=== PATIENT | male | born 1965 | race Caucasian/White ===

== ENCOUNTER 2021-08-10 19:40 | Emergency (ER) | payer BC ==
[2021-08-10] MEDS ORDERED: Sodium Chloride 0.9% 10 ML Syringe FLUSH PRN (19:56)
--- NOTE | 2021-08-10 20:30 | EDM.PDOC ---
ED HPI GENERAL MEDICAL PROBLEM - General Chief Complaint: Chest Pain Stated Complaint: [facility] Time Seen by Provider: 08/10/21 20:20 Source of Information: Reports: Patient, RN Notes Reviewed History Limitations: Reports: No Limitations - History of Present Illness INITIAL COMMENTS - FREE TEXT/NARRATIVE: Patient is a 56-year-old male who presents to the ER for the evaluation of his chest discomfort. Patient was brought in via [facility]. Patient states that he was sitting on his couch, when he turned onto his left side, and had excruciating left lower chest pain. States that it felt like a band across his chest. Patient has been getting over a sinus infection/upper respiratory infection. So he knows that the pain seems to worsen with movement and coughing. He is not had pain like this in the past. No cardiac issues prior to this. Patient denies any other sick-like symptoms, fever/chills, cough, or nausea/vomiting/diarrhea. Patient states that due to the pain, he does have a slight bit of shortness of breath. Left Lower Chest Pain Score (Numeric/FACES): 6 - Related Data Allergies Allergy/AdvReac Type Severity Reaction Status Date / Time No Known Allergies Allergy Verified 08/10/21 19:45 Home Meds: Home Meds . [No Known Home Meds] 08/10/21 [History] Past Medical History - Past Health History Medical/Surgical History: Denies Medical/Surgical History Social & Family History - Tobacco Use Tobacco Use Status *Q: Current Every Day Tobacco User Years of Tobacco use: 12 Packs/Tins Daily: 1 - Caffeine Use Caffeine Use: Reports: Coffee - Alcohol Use Days Per Week of Alcohol Use: 7 Number of Drinks Per Day: 3 Total Drinks Per Week: 21 - Recreational Drug Use Recreational Drug Use: No ED ROS GENERAL - Review of Systems Review Of Systems: Comprehensive ROS is negative, except as noted in HPI. ED EXAM, GENERAL - Physical Exam Exam: See Below Exam Limited By: No Limitations General Appearance: Alert, WD/WN, No Apparent Distress Respiratory/Chest: No Respiratory Distress, Lungs Clear, Normal Breath Sounds, No Accessory Muscle Use, Other (tenderness to left lower chest) Cardiovascular: Normal Peripheral Pulses, Regular Rate, Rhythm, No Edema Extremities: Normal Inspection, Normal Capillary Refill Neurological: Alert, Oriented, Normal Cognition, No Motor/Sensory Deficits Psychiatric: Normal Affect, Normal Mood Skin Exam: Warm, Dry, Intact, Normal Color, No Rash #1 Interpretation EKG Date: 08/10/21 Time: 20:22 Rhythm: NSR Rate (Beats/Min): 72 [place]: Normal P-Wave: Present QRS: Normal ST-T: Normal QT: Normal Comparison: NA - No Prior EKG EKG Interpretation Comments: No obvious ischemia or acute ST changes noted, reviewed by myself and Dr. Luther mobley. Course - Vital Signs Last Recorded V/S: Last Vital Signs Temp 97.7 F 08/10/21 19:45 Pulse 90 08/10/21 19:45 Resp 15 08/10/21 19:45 BP 120/75 08/10/21 19:45 Pulse Ox 97 08/10/21 19:45 - Orders/Labs/Meds Orders: Active Orders 24 hr Category Date Time Status Peripheral IV Care [RC] . DIRECTED Care 08/10/21 19:56 Active Chest 1V Frontal [CR] Stat Exams 08/10/21 19:56 Taken Sodium Chloride 0.9% [Saline Flush] Med 08/10/21 19:56 Active 10 ml FLUSH ASDIRECTED PRN Peripheral IV Insertion Adult [OM.PC] Stat Oth 08/10/21 19:56 Ordered Medication Orders Sodium Chloride (Sodium Chloride 0.9% 10 Ml Syringe) 10 ml FLUSH ASDIRECTED PRN PRN Reason: Keep Vein Open Labs: Laboratory Tests 08/10/21 08/10/21 08/10/21 Range/Units 20:15 20:15 20:15 WBC 10.11 H (4.23-9.07) K/mm3 RBC 4.26 L (4.63-6.08) M/mm3 Hgb 13.5 L (13.7-17.5) gm/dl Hct 40.6 (40.1-51.0) % MCV 95.3 H (79.0-92.2) fl MCH 31.7 (25.7-32.2) pg MCHC 33.3 (32.2-35.5) g/dl RDW Std Deviation 43.4 (35.1-43.9) fL Plt Count 481 H (163-337) K/mm3 MPV 7.9 L (9.4-12.3) fl Neut % (Auto) 72.9 H (34.0-67.9) % Lymph % (Auto) 18.3 L (21.8-53.1) % [place] % (Auto) 7.4 (5.3-12.2) % Eos % (Auto) 0.8 (0.8-7.0) Baso % (Auto) 0.4 (0.1-1.2) % Neut # (Auto) 7.37 H (1.78-5.38) K/mm3 Lymph # (Auto) 1.85 (1.32-3.57) K/mm3 [place] # (Auto) 0.75 (0.30-0.82) K/mm3 Eos # (Auto) 0.08 (0.04-0.54) K/mm3 Baso # (Auto) 0.04 (0.01-0.08) K/mm3 PT 10.9 (9.7-12.0) SECONDS INR 0.98 APTT 26.2 (21.7-31.4) SECONDS Sodium 139 (136-145) mEq/L Potassium 4.6 (3.5-5.1) mEq/L Chloride 104 (98-107) mEq/L Carbon Dioxide 29 (21-32) mEq/L Anion Gap 10.6 (5-15) BUN 7 (7-18) mg/dL Creatinine 0.8 (0.7-1.3) mg/dL Est Cr Clr Drug Dosing 67.80 mL/min Estimated GFR (MDRD) > 60 (>60) mL/min BUN/Creatinine Ratio 8.8 L (14-18) Glucose 89 (70-99) mg/dL Calcium 8.8 (8.5-10.1) mg/dL Magnesium 2.2 (1.8-2.4) mg/dL Total Bilirubin 0.4 (0.2-1.0) mg/dL AST 11 L (15-37) U/L ALT 19 (16-63) U/L Alkaline Phosphatase 60 (46-116) U/L Troponin I < 0.017 (0.00-0.056) ng/mL NT-Pro-B Natriuret Pep (0-125) pg/mL Total Protein 7.1 (6.4-8.2) g/dl Albumin 3.1 L (3.4-5.0) g/dl Globulin 4.0 gm/dL Albumin/Globulin Ratio 0.8 L (1-2) 08/10/21 Range/Units 20:15 WBC (4.23-9.07) K/mm3 RBC (4.63-6.08) M/mm3 Hgb (13.7-17.5) gm/dl Hct (40.1-51.0) % MCV (79.0-92.2) fl MCH (25.7-32.2) pg MCHC (32.2-35.5) g/dl RDW Std Deviation (35.1-43.9) fL Plt Count (163-337) K/mm3 MPV (9.4-12.3) fl Neut % (Auto) (34.0-67.9) % Lymph % (Auto) (21.8-53.1) % [place] % (Auto) (5.3-12.2) % Eos % (Auto) (0.8-7.0) Baso % (Auto) (0.1-1.2) % Neut # (Auto) (1.78-5.38) K/mm3 Lymph # (Auto) (1.32-3.57) K/mm3 [place] # (Auto) (0.30-0.82) K/mm3 Eos # (Auto) (0.04-0.54) K/mm3 Baso # (Auto) (0.01-0.08) K/mm3 PT (9.7-12.0) SECONDS INR APTT (21.7-31.4) SECONDS Sodium (136-145) mEq/L Potassium (3.5-5.1) mEq/L Chloride (98-107) mEq/L Carbon Dioxide (21-32) mEq/L Anion Gap (5-15) BUN (7-18) mg/dL Creatinine (0.7-1.3) mg/dL Est Cr Clr Drug Dosing mL/min Estimated GFR (MDRD) (>60) mL/min BUN/Creatinine Ratio (14-18) Glucose (70-99) mg/dL Calcium (8.5-10.1) mg/dL Magnesium (1.8-2.4) mg/dL Total Bilirubin (0.2-1.0) mg/dL AST (15-37) U/L ALT (16-63) U/L Alkaline Phosphatase (46-116) U/L Troponin I (0.00-0.056) ng/mL NT-Pro-B Natriuret Pep 148 H (0-125) pg/mL Total Protein (6.4-8.2) g/dl Albumin (3.4-5.0) g/dl Globulin gm/dL Albumin/Globulin Ratio (1-2) Meds: Medications Generic Name Dose Route Start Last Admin Trade Name Freq PRN Reason Stop Dose Admin Sodium Chloride 10 ml 08/10/21 19:56 Sodium Chloride 0.9% 10 Ml Syringe FLUSH ASDIRECTED PRN Keep Vein Open Discontinued Medications Generic Name Dose Route Start Last Admin Trade Name Freq PRN Reason Stop Dose Admin Ketorolac Tromethamine 30 mg 08/10/21 20:56 08/10/21 21:34 Ketorolac 30 Mg/Ml Sdv IVPUSH 08/10/21 20:57 Not Given ONETIME ONE - Re-Assessments/Exams Free Text/Narrative Re-Assessment/Exam: 08/10/21 20:29 Patient presents to the ER for his chest discomfort/pain. Labs were obtained at the time of triage, EKG demonstrates normal sinus rhythm with no obvious ST change or abnormality. Likely that the chest pain is more musculoskeletal and we will come up with pain management plan after cardiac etiology has been evaluated. 08/10/21 20:55 Labs have resulted, and patient troponin is undetectably low, white count slightly elevated at 10.11. We will go ahead and figure pain management plan for his chest wall discomfort. Likely place the patient on some muscle relaxers and have him try some outpatient ibuprofen over the next few days. Departure - Departure Time of Disposition: 21:05 Disposition: Home, Self-Care 01 Condition: Good Clinical Impression: Left-sided chest wall pain Instructions: Chest Wall Pain, [id number], Pleurodynia Referrals: PCP,None [Primary Care Provider] - Forms: ED Department Discharge Additional Instructions: You were evaluated in the ER today for your left-sided chest discomfort. Cardiac work-up was completed and you were found to be without any acute cardiac abnormalities. Your chest discomfort is likely due to musculoskeletal aggravation, and/or pleurisy in nature. All of which can be treated on outpatient basis with anti- inflammatories. You have been given a prescription for Naprosyn you may take 1 tablet 2 times a day. You have also been given a prescription for Flexeril through the [employer] machine you can take 1 tablet 2 times a day as needed for further muscle spasms. You may try some ice packs/heat packs to your left chest as well to see if this helps relieve any of the discomfort. Do not hesitate to return to the ER at any time if symptoms change or worsen. Sepsis Event Note (ED) - Evaluation Sepsis Screening Result: No Definite Risk - Focused Exam Vital Signs: Vital Signs Temp Pulse Resp BP Pulse Ox 08/10/21 19:45 97.7 F 90 15 120/75 97 - My Orders Last 24 Hours: My Active Orders 08/10/21 19:56 Peripheral IV Care [RC] . DIRECTED Chest 1V Frontal [CR] Stat Sodium Chloride 0.9% [Saline Flush] 10 ml FLUSH ASDIRECTED PRN Peripheral IV Insertion Adult [OM.PC] Stat - Assessment/Plan Last 24 Hours: My Active Orders 08/10/21 19:56 Peripheral IV Care [RC] . DIRECTED Chest 1V Frontal [CR] Stat Sodium Chloride 0.9% [Saline Flush] 10 ml FLUSH ASDIRECTED PRN Peripheral IV Insertion Adult [OM.PC] Stat
[2021-08-10] MEDS ORDERED: Ketorolac 30 MG/ML SDV IVPUSH ONE (20:56)
--- NOTE | 2021-08-11 10:37 | CR ---
Chest: Portable view of the chest was obtained. Comparison: No prior chest imaging is available. Heart size and mediastinum are normal. Lungs are clear with no definite acute parenchymal change. Bony structures show nothing acute. Impression: 1. Nothing acute is appreciated on portable chest x-ray. Diagnostic code #1
== END 2021-08-10 21:22 | disposition home or self-care (01) ==
LOC: JD.ED 19:40
DX: R07.89 Other chest pain (principal); Z72.0 Tobacco use
CPT/HCPCS: 36415; 71045; 71045-26; 80053; 83735; 83880; 84484; 85025; 85610; 85730; 93005; 99285-25